=== PATIENT | female | born 1995 | race Caucasian/White ===

== ENCOUNTER 2023-07-01 11:10 | Outpatient (REF) | payer OTHER, SELFPAY ==
[2023-07-01 13:59] LABS: Estimated Average Glucose 97 mg/dL
[2023-07-01 14:07] LABS: Alanine Aminotransferase 39 U/L (0-31); Albumin Level 4.2 g/dL (3.5-5.0); Alkaline Phosphatase 83 U/L (39-117); Anion Gap 13 (12-20); Aspartate Amino Transferase 28 U/L (5-31); Bilirubin Total 0.3 mg/dL (0.0-1.0); Blood Urea Nitrogen 11 mg/dL (9-16); Calcium 9.5 mg/dL (8.4-10.2); Carbon Dioxide 24 mmol/L (22-29); Chloride 103 mmol/L (96-108); Cholesterol 259 mg/dL (<200); Estimated Glomerular Filt Rate > 60; Glucose Random 94 mg/dL (60-115); HDL Cholesterol 41 mg/dL (>40); LDL Cholesterol Calculated 182 mg/dL (<100); Potassium 3.8 mmol/L (3.3-5.1); Sodium 136 mmol/L (135-145); Triglycerides 182 mg/dL (<150)
[2023-07-02 09:21] LABS: HIV AB/AG Nonreactive (Nonreactive); HIV Num 1 0.06 S/CO (0.00-0.99); ~Hepatitis C Antibody Nonreactive (Nonreactive)
== END 2023-07-01 11:11 | disposition home or self-care (01) ==
LOC: HO.HHCL 11:10
PROVIDERS: Visit Provider General Practice
DX: E66.01 Morbid (severe) obesity due to excess calories (principal); Z71.3 Dietary counseling and surveillance; E78.5 Hyperlipidemia, unspecified
CPT/HCPCS: 36415; 80053; 80061; 83036; 86803; 87389

== ENCOUNTER 2025-01-28 12:10 | Outpatient (REF) | payer OTHER, SELFPAY ==
[2025-01-30 21:09] LABS: TS Negative Control Passed; TS Panel A 0; TS Panel B 0; TS Positive Control Passed; TSpotTB Negative (Negative)
== END 2025-01-28 12:11 | disposition home or self-care (01) ==
LOC: HO.HHCL 12:10
PROVIDERS: Visit Provider General Practice
DX: Z11.1 Encounter for screening for respiratory tuberculosis (principal)
CPT/HCPCS: 36415; 86481

== ENCOUNTER 2025-02-22 14:02 | Outpatient (REF) | payer OTHER, SELFPAY ==
--- OUTSIDE RECORDS SUMMARY | 2025-02-22 15:44 | XMS_ITS | Encounter Summary ---
Author Organization [employer] Address [address] [place] [address] [address] [place] [address] Care Team Providers Care Release And Technical Records Clerk Name Role Phone Aleshia Norwood MD Primary Care Provider Reason for Referral * Consultation (Routine) - Authorized Specialty Diagnoses / Procedures Referred By Albaro ramos Referred To Contact Pediatrics Diagnoses Class 3 severe obesity without serious comorbidity with body mass index (BMI) of 40.0 to 44.9 in adult, unspecified obesity type Autistic disorder Aleshia Norwood MD [address] [place] [address] Phone: tel: fax: Referral ID Status Reason Start Date Expiration Date Visits Requested Visits Authorized [id number] Authorized Consult and Treat 02/22/2025 02/22/2026 1 1 * Consultation (Routine) - Authorized Specialty Diagnoses / Procedures Referred By Albaro ramos Referred To Contact Family Medicine Diagnoses Hyperandrogenism Hirsutism Aleshia Norwood MD [address] [place] [id number] Phone: tel: fax: Referral ID Status Reason Start Date Expiration Date Visits Requested Visits Authorized [id number] Authorized Specialty Services Required 02/22/2025 02/22/2026 1 1 Reason for Visit * Reason Comments Follow-up Encounter Details Date Type Department Care Team ([facility] st Contact Info) Description 02/22/2025 1:30 PM EDT Office Visit [facility] [address] [place] [address] Aleshia Norwood MD [address] [place] [address] Class 3 severe obesity without serious comorbidity with body mass index (BMI) of 40.0 to 44.9 in adult, unspecified obesity type (Primary Dx); Morbid obesity (CMS/HCC); Dermoid cyst of brain (CMS/HCC); Dietary counseling; Exercise counseling; Vitamin D deficiency; Autistic disorder; Seborrheic dermatitis; Hyperandrogenism; Hirsutism Social History Tobacco Use Types Packs/Day Years Used Date Smoking Tobacco: Never Passive Smoke Exposure: Never Smokeless Tobacco: Never Tobacco Cessation:Counseling Given: Not Answered Alcohol Answer Date Recorded How often do you have a drink containing alcohol ? 0 02/22/2025 How many drinks containing a lcohol do you have on a typical day when you are drinking? 0 02/22/2025 How often do you have six or more drinks on one occasion? 0 02/22/2025 Depression Answer Date Recorded Patient Health Questionnaire-9 Score 0 02/22/2025 Patient Health Questionnaire-9 Score 0 02/22/2025 Last PHQ-9: Questionnaire Data Not on file 0 02/22/2025 Housing Stability Answer Date Recorded What is your housing situation today? I have juliorenetta arroyo 02/22/[address] you li ve. Do you have problems with any of the following? None of the above 02/22/2025 Food Insecurity Answer Date Recorded Within the past 12 months, y ou worried that your food would run out before you got money to buy more: Never True 02/22/2025 Within the past 12 months,th e food you bought just didn't last and you didn't have enough money to get more: Never True Transportation Answer Date Recorded In the past 12 months, has l ack of transportation kept you from medical appts, meetings, work or from getting things needed for daily living? No 02/22/2025 Intimate Partner Violence Answer Date R ecorded Within the last year, have y ou been afraid of your partner or ex-partner? 2 02/22/2025 Within the last year, have y ou been humiliated or emotionally abused in other ways by your partner or ex-partner? 2 Within the last year, have y ou been kicked, hit, slapped, or otherwise physically hurt by your partner or ex-partner? 2 02/22/2025 Within the last year, have y ou been raped or forced to have any kind of sexual activity by your partner or ex-partner? 2 02/22/2025 Utilities Answer Date Recorded In the past 12 months, has t he [employer], [employer], oil or water [employer] threatened to shut off services in your home? No 02/22/2025 Depression Answer Date Recorded Patient Health Questionnaire-2 Score 0 02/22/2025 Internet Access Answer Date Recorded Internet Access Q1 Yes 02/22/2025 Internet Access Q2 Not on file 02/22/2025 Comments Unknown Sex and Gender Information Value Date Recorded Sex Assigned at Female 07/09/2022 10:30 AM EDT Legal Sex Female 10:30 AM EDT Gender Identity Female 07/09/2022 10:30 AM EDT Sexual Orientation Choose not to disclose 2021 10:30 AM EDT documented as of this encounter Last Filed Vital Signs Vital Sign Reading Time Taken Comments Blood Pressure 118/80 02/22/2025 1:17 PM EDT Pulse 90 02/22/2025 1:17 PM EDT Temperature 37.2 ??C (99 ??F) 02/22/2025 1:17 PM EDT Respiratory Rate 20 02/22/2025 1:17 PM EDT Oxygen Saturation - - Inhaled Oxygen Concentration - - Weight 101 kg (222 lb 6.4 oz) 02/22/2025 1:17 PM EDT Height 149.9 cm (4' 11 ) 02/22/2025 1:17 PM EDT Body Mass Index 44.92 02/22/2025 1:17 PM EDT documented in this encounter Functional Status * Over the past 2 weeks, how often have you been bothered by any of the following problems? Question Answer Date of Assessment Author Patient Health Questionnaire-2 Score 0 02/22/2025 1:27 PM EDT Nicole Means MA * Little interest or pleasure in doing things Answer Date of Assessment Author Not at all 02/22/2025 1:27 PM EDT Nicole Pinedo MA * Feeling down, depressed, or hopeless Answer Date of Assessment Author Not at all 02/22/2025 1:27 PM EDT Nicole Pinedo MA * Trouble falling or staying asleep, or sleeping too much Answer Date of Assessment Author Not at all 02/22/2025 1:27 PM EDT Nicole Pinedo MA * Feeling tired or having little energy Answer Date of Assessment Author Not at all 02/22/2025 1:27 PM EDT Nicole Pinedo MA * Poor appetite or overeating Answer Date of Assessment Author Not at all 02/22/2025 1:27 PM EDT Nicole Pinedo MA * Feeling bad about yourself - or that you are a failure or have let yourself or your family down Answer Date of Assessment Author Not at all 02/22/2025 1:27 PM EDT Nicole Pinedo MA * Trouble concentrating on things, such as reading the newspaper or watching television Answer Date of Assessment Author Not at all 02/22/2025 1:27 PM EDT Nicole Pinedo MA * Moving or speaking so slowly that other people could have noticed? Or the opposite - being so fidgety or restless that you have been moving around a lot more than usual. Answer Date of Assessment Author Not at all 02/22/2025 1:27 PM EDT Nicole Pinedo MA * Thoughts that you would be better off or hurting yourself in some way Answer Date of Assessment Author Not at all 02/22/2025 1:27 PM EDT Nicole Pinedo MA * Patient Health Questionnaire-9 Score Answer Date of Assessment Author 0 02/22/2025 1:27 PM Nicole Estrella MA documented as of this encounter Progress Notes * Aleshia Norwood MD - 02/22/2025 1:30 PM EDT SUBJECTIVE: Genesis Waldron is a 28 y.o. year old female who presents for physical exam. Last seen 06/2023. She isaccompanied by her mother Waleska Reagan Acute Concerns: Weight gain, would like to go to weight clinic (will check with pedi), labs today Interim Updates: Diet: Eats a variety of things, active 30-45 minutes a day. Wants to join the [employer] Has been obese since taking months of steroids at age 8/9 (per mom) Used to go to Day program, but they have been staying home since COVID pandemic Sleep- 3-7 hours a night Exercise: active at home, dancing and doing [employer] games. Watches [employer], listens to podcast, does art projects Health Maintenance: Imms- declines COVID and flu Not sexually active Pap- declines, denies sexually activity, has had crushes on boys Social History Social History Narrative Lives at home with mother, 42 year old brother (also with autism) Patient Active Problem List Diagnosis Date Noted Routine history and physical examination of adult 07/03/2023 Traumatic brain injury ([facility]) 01/14/2019 Posterior tibial tendon dysfunction 03/30/2017 Hyperandrogenism 06/25/2016 Hirsutism 06/15/2016 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 Review of Systems Constitutional: Negative. Respiratory: Negative. Cardiovascular: Negative. Gastrointestinal: Negative. Musculoskeletal: Negative. OBJECTIVE: Vitals: 02/22/25 1317 BP: 118/80 BP Location: Left arm Patient Position: Sitting BP Cuff Size: Large adult Pulse: 90 Resp: 20 Temp: 99 ??F (37.2 ??C) TempSrc: Oral Weight: 222 lb 6.4 oz (101 kg) Height: 4' 11 (1.499 m) Physical Exam Constitutional: Appearance: Normal appearance. HENT: Head: Normocephalic and atraumatic. Cardiovascular: Rate and Rhythm: Normal rate and regular rhythm. Pulses: Normal pulses. Heart sounds: Normal heart sounds. Pulmonary: Effort: Pulmonary effort is normal. Breath sounds: Normal breath sounds. Skin: General: Skin is warm and dry. Girish derm of scalp Neurological: General: No focal deficit present. Mental Status: She is alert and oriented to person, place, and time. Psychiatric: Mood and Affect: Mood normal. Behavior: Behavior normal. ASSESSMENT/PLAN Problem List Items Addressed This Visit Autistic disorder Relevant Medications melatonin 3 MG tablet Other Relevant Orders Referral to Pedi Healthy Weight Morbid obesity (CMS/HCC) Dermoid cyst of brain (CMS/HCC) Hirsutism Relevant Medications ketoconazole (NIZOral) 2 % shampoo Other Relevant Orders Referral to [facility] Skin Adult Hyperandrogenism Relevant Orders Referral to [facility] Adult Vitamin D deficiency Relevant Medications cholecalciferol (Vitamin D-3) 25 MCG tablet Other Visit Diagnoses Class 3 severe obesity without serious comorbidity with body mass index (BMI) of 40.0 to 44.9 in adult, unspecified obesity type - Primary Relevant Orders TSH W/Reflex to FT4 Testosterone, Free (Dialysis) And Total, MS CBC auto differential Comprehensive Metabolic Panel Lipid Panel, Standard Hemoglobin A1c Referral to [facility] Healthy Weight Dietary counseling Exercise counseling Seborrheic dermatitis Relevant Medications ketoconazole (NIZOral) 2 % shampoo Followup: 1 year or sooner prn Croatian Translation: Patient is bilingual and declines translation services documented in this encounter Plan of Treatment Scheduled Orders Name Type Priority Associated Diagnoses Orde r Schedule TSH W/Reflex to FT4 Lab Routine Class 3 severe obesity without serious comorbidity with body mass index (BMI) of 40.0 to 44.9 in adult, unspecified obesity type Expected: 02/22/2025 (Approximate), Expires: 02/22/2026 Testosterone, Free (Dialysis) And Total, MS Lab Routine Class 3 severe obesity without serious comorbidity with body mass index (BMI) of 40.0 to 44.9 in adult, unspecified obesity type Expected: 02/22/2025 (Approximate), Expires: 02/22/2026 CBC auto differential Lab Routine Class 3 severe obesity without serious comorbidity with body mass index (BMI) of 40.0 to 44.9 in adult, unspecified obesity type Expected: 02/22/2025 (Approximate), Expires: 02/22/2026 Comprehensive Metabolic Panel Lab Routine Class 3 severe obesity without serious comorbidity with body mass index (BMI) of 40.0 to 44.9 in adult, unspecified obesity type Expected: 02/22/2025 (Approximate), Expires: 02/22/2026 Lipid Panel, Standard Lab Routine Class 3 severe obesity without serious comorbidity with body mass index (BMI) of 40.0 to 44.9 in adult, unspecified obesity type Expected: 02/22/2025 (Approximate), Expires: 02/22/2026 Hemoglobin A1c Lab Routine Class 3 severe obesity without serious comorbidity with body mass index (BMI) of 40.0 to 44.9 in adult, unspecified obesity type Expected: 02/22/2025 (Approximate), Expires: 02/22/2026 Scheduled Referrals Name Type Priority Associated Diagnoses Orde r Schedule Referral to [facility] Skin Adult Outpatient Referral Routine Hyperandrogenism Hirsutism Expected: 02/22/2025 (Approximate), Expires: 02/22/2026 Referral to [facility] Healthy Weight Outpatient Referral Routine Class 3 severe obesity without serious comorbidity with body mass index (BMI) of 40.0 to 44.9 in adult, unspecified obesity type Autistic disorder Expected: 02/22/2025 (Approximate), Expires: 02/22/2026 documented as of this encounter Visit Diagnoses Diagnosis Class 3 severe obesity without serious comorbidity with body mass index (BMI) of 40.0 to 44.9 in adult, unspecified obesity type- Primary Morbid obesity (CMS/HCC) Morbid obesity 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 Dietary counseling Dietary surveillance and counseling Exercise counseling Vitamin D deficiency Autistic disorder Autistic disorder, current or active state Seborrheic dermatitis Unspecified seborrheic dermatitis Hyperandrogenism Other ovarian hyperfunction Hirsutism documented in this encounter Additional Health Concerns Assessment Noted Time PHQ-9 Depression Total Score: 0 02/23/20 25 1:27 PM EDT documented as of this encounter Care Teams Release And Technical Records Clerk Relationship Specialty Start Date End Date Aleshia Norwood MD [address] [place] [address] PCP - General Family Medicine 09/23/20 documented as of this encounter
[2025-02-22 16:10] LABS: MANUAL DIFF FLAG NO
[2025-02-22 16:20] LABS: Basophils Percent Auto 0.3 % (0-2); Eosinophils Absolute Auto 0.2 X10*3/uL (0.0-0.4); Eosinophils Percent Auto 1.6 % (0-4); Hematocrit 39.4 % (37.0-47.0); Hemoglobin 13.3 g/dl (12.0-16.0); Imm Gran Abs Auto 0.02 X10*3/uL (0.00-0.03); Imm Gran Pct Auto 0.2 % (0.0-0.4); Lymphocytes Absolute Auto 2.5 X10*3/uL (1.2-4.9); Lymphocytes Percent Auto 25.7 % (20-40); Mean Corpuscular HGB Conc 33.8 g/dl (31.0-35.0); Mean Corpuscular Hemoglobin 27.1 pg (27.0-33.0); Mean Corpuscular Volume 80.2 fL (80.0-98.0); Mean Platelet Volume 9.4 fL (9.4-12.3); Monocytes Absolute Auto 0.5 X10*3/uL (0.1-1.2); Monocytes Percent Auto 4.7 % (2-11); Neutrophils Absolute Auto 6.5 x10*3/uL (2.0-8.3); Neutrophils Percent Auto 67.5 % (45-73); Platelet Count 493 X10*3/uL (160-400); Red Blood Count 4.91 X10*6/uL (4.20-5.50); Red Cell Distribution Width 12.9 % (11.0-16.0); White Blood Count 9.6 X10*3/uL (4.8-10.8)
[2025-02-22 16:37] LABS: Estimated Average Glucose 108 mg/dL; Hemoglobin A1c % 5.4 % (<6.0)
[2025-02-22 17:04] LABS: Alanine Aminotransferase 66 U/L (0-31); Albumin Level 4.1 g/dL (3.5-5.0); Alkaline Phosphatase 86 U/L (39-117); Anion Gap 15 (12-20); Aspartate Amino Transferase 48 U/L (5-31); Bilirubin Total 0.2 mg/dL (0.0-1.0); Blood Urea Nitrogen 13 mg/dL (9-16); Calcium 9.3 mg/dL (8.4-10.2); Carbon Dioxide 23 mmol/L (22-29); Chloride 107 mmol/L (96-108); Cholesterol 232 mg/dL (<200); Estimated Glomerular Filt Rate > 60; Glucose Random 106 mg/dL (60-115); HDL Cholesterol 43 mg/dL (>40); LDL Cholesterol Calculated 147 mg/dL (<100); Sodium 141 mmol/L (135-145); TSH reflex Free T4 2.29 uIU/mL (0.32-4.0); Total Protein 7.5 g/dL (6.5-8.0); Triglycerides 212 mg/dL (<150)
[2025-02-27 15:29] LABS: Testosterone, Free 15.8 pg/mL (0.1-6.4); Testosterone, Total 115 ng/dL (2-45)
== END 2025-02-22 14:03 | disposition home or self-care (01) ==
LOC: HO.HHCL 14:02
PROVIDERS: Visit Provider General Practice
DX: E66.813 Obesity, class 3 (principal); Z68.41 Body mass index [BMI] 40.0-44.9, adult
CPT/HCPCS: 36415; 80053; 80061; 83036; 84402; 84403; 84443; 85025